=== PATIENT | female | born 1970 | race African-American/Black ===

== ENCOUNTER 2017-09-05 23:20 | Emergency (ER) | payer BC, OTHER ==
[~2017-09-05] VITALS: Ht 157.5 cm; Wt 74.8 kg
[2017-09-06] VITALS: BP 164/70
[2017-09-06] MEDS ORDERED: IV NORMAL SALINE 1000ML BAG 1,000 ML IV ONE
[2017-09-06] MEDS ORDERED: IV NORMAL SALINE 1000ML BAG 1,000 ML IV SCH
--- NOTE | 2017-09-06 | PHYS DOC ---
Past Medical History Past Medical History: No Pertinent History Past Surgical History: Cholecystectomy Alcohol Use: None Drug Use: None Adult General Chief Complaint Chief Complaint: OTHER COMPLAINTS HPI HPI Patient is a 46 year old female who presents ambulatory to the ED with the complaint that she feels jittery on the inside. She's never had this before. She does not feel anxious, she denies fever or shaking chills. Patient states that yesterday after her lunch break she began to feel nauseated, she felt nauseated during the afternoon, then when she got home from work she vomited. She had some vomiting during the afternoon and evening yesterday. This morning when she woke up she felt better and went ahead to work. She felt okay during the morning, then around lunchtime she began to feel nauseated and she felt nauseated all afternoon. She got home from work and continued to feel nauseated. She has not vomited today. She just "doesn't feel right" and feels jittery on the inside. She denies shortness of air. She has some pain right in the middle of her sternum that hurts when she moves or coughs. Patient works at [employer]. Patient has a diagnosis of hypertension. She takes hydrochlorothiazide and lisinopril daily. She also takes Flexeril 5 mg 3 times a day for "muscle pain", also takes Flonase nasal spray. She takes Zantac daily and also Effexor 75 mg twice a day. She denies missing any doses of Effexor or and she does not believe she vomited any of her doses. She denies new medications or discontinuing or running out of any medications. Review of Systems Review of Systems Constitutional: Denies fever or chills [] HENT: Denies nasal congestion or sore throat [] Respiratory: Denies cough or shortness of breath [] Cardiovascular: As in history of present illness, she has a point tender spot in her mid sternum that does not sound cardiac GI: As in history of present illness : She is about 3 days late with her menstrual period but has had BTL and does not think she is Musculoskeletal: Denies back pain or joint pain [] Integument: Denies rash or skin lesions [] Neurologic: Denies headache, focal weakness All other systems were reviewed and found to be within normal limits, except as documented in this note. Current Medications Current Medications Current Medications Medications (Trade) Dose Ordered Sig/Juan Carlos Start Time Stop Time Status Last Admin Dose Admin Sodium Chloride 1,000 ml @ 1,000 mls/hr 1X ONCE 09/06/17 00:00 09/06/17 00:59 Allergies Allergies Allergies Coded Allergies Type Severity Reaction Last Updated Verified nalbuphine Allergy Intermediate 12/25/14 No Physical Exam Physical Exam Constitutional: Well developed, well nourished, no acute distress, non-toxic appearance. Alert, ambulatory, no acute distress. She does not appear anxious. She does not have any tremulousness or shakiness. HENT: Normocephalic, atraumatic, bilateral external ears normal, nose normal. [ ] Eyes: conjunctiva normal, no discharge. [] Neck: Normal range of motion, no stridor. [] Cardiovascular:Heart rate regular rhythm, no murmur [] Lungs & Thorax: Bilateral breath sounds clear to auscultation [] Abdomen: Bowel sounds normal, soft, no tenderness, no masses, no pulsatile masses. [] Skin: Warm, dry, no erythema, no rash. [] Extremities: No tenderness, no cyanosis, no clubbing, ROM intact, no edema. [] Neurologic: Alert and oriented X 3, normal motor function, no focal deficits noted. [] Current Patient Data Vital Signs Vital Signs Date Time Temp Pulse Resp B/P (MAP) Pulse Ox O2 Delivery O2 Flow Rate FiO2 09/05/17 23:54 98.2 61 16 160/65 (96) 99 Room Air 98.2 Lab Values Laboratory Tests Test 09/05/17 23:59 09/06/17 00:06 White Blood Count 7.7 x10^3/uL (4.0-11.0) Red Blood Count 4.72 x10^6/uL (3.50-5.40) Hemoglobin 13.4 g/dL (12.0-15.5) Hematocrit 41.0 % (36.0-47.0) Mean Corpuscular Volume 87 fL (79-100) Mean Corpuscular Hemoglobin 28 pg (25-35) Mean Corpuscular Hemoglobin Concent 33 g/dL (31-37) Red Cell Distribution Width 14.1 % (11.5-14.5) Platelet Count 225 x10^3/uL (140-400) Neutrophils (%) (Auto) 51 % (31-73) Lymphocytes (%) (Auto) 37 % (24-48) Monocytes (%) (Auto) 9 % (0-9) Eosinophils (%) (Auto) 2 % (0-3) Basophils (%) (Auto) 1 % (0-3) Neutrophils # (Auto) 3.9 x10^3uL (1.8-7.7) Lymphocytes # (Auto) 2.9 x10^3/uL (1.0-4.8) Monocytes # (Auto) 0.7 x10^3/uL (0.0-1.1) Eosinophils # (Auto) 0.2 x10^3/uL (0.0-0.7) Basophils # (Auto) 0.0 x10^3/uL (0.0-0.2) Sodium Level 139 mmol/L (136-145) Potassium Level 3.8 mmol/L (3.5-5.1) Chloride Level 103 mmol/L (98-107) Carbon Dioxide Level 30 mmol/L (21-32) Anion Gap 6 (6-14) Blood Urea Nitrogen 11 mg/dL (7-20) Creatinine 1.0 mg/dL (0.6-1.0) Estimated GFR (Cockcroft-Gault) 71.6 BUN/Creatinine Ratio 11 (6-20) Glucose Level 87 mg/dL (70-99) Calcium Level 9.0 mg/dL (8.5-10.1) Total Bilirubin 0.4 mg/dL (0.2-1.0) Aspartate Amino Transferase (AST) 30 U/L (15-37) Alanine Aminotransferase (ALT) 27 U/L (14-59) Alkaline Phosphatase 72 U/L (46-116) Total Protein 7.9 g/dL (6.4-8.2) Albumin 4.0 g/dL (3.4-5.0) Albumin/Globulin Ratio 1.0 (1.0-1.7) POC Urine HCG, Qualitative Hcg negative (Negative) Laboratory Tests 09/05/17 23:59 Laboratory Tests 09/05/17 23:59 EKG EKG [] Radiology/Procedures Radiology/Procedures [] Course & Med Decision Making Course & Med Decision Making Pertinent Labs and Imaging studies reviewed. (See chart for details) 46-year-old female presents with feeling like she is jittery on the inside. Sounds like she may have had a viral gastroenteritis. She had nausea and several episodes of vomiting yesterday, today no vomiting but continued to be nauseated. Patient does take Effexor but she denies missing any doses, she denies running out, she denies vomiting her doses of this or any other medication. A shunt appears stable on presentation with pulse ox 100%, blood pressure mildly elevated 160/65. I discussed with the patient we will check some labs and give her a liter of IV fluids, she is agreeable to that plan. I am signing out the patient to Dr. Swartz at shift change. He will check her labs and see how she is feeling after a liter of IV fluids. I anticipate the patient being able to be discharged in stable condition if labs are within normal limits. 0038: Patient was seen and examined and updated on lab results and plan to discharge home. MDM: After reviewing the chart, CC/HPI/PMH, physical exam, [lab results], I do not believe the patient has emergent medical condition warranting further workup and /or admission at this time. I believe the patient is stable for discharge. Patient is comes Will be discharged home. Additional verbal discharge instructions were provided to the patient and that if symptoms get worse or any new symptoms arise that are worrisome to the patient she is to return to the emergency room immediately [] Dragon Disclaimer Dragon Disclaimer This electronic medical record was generated, in whole or in part, using a voice recognition dictation system. Departure Departure Impression: Primary Impression: Viral illness Disposition: HOME, SELF-CARE Condition: STABLE Referrals: UNKNOWN PCP NAME (PCP) Patient Instructions: Viral Infections Additional Instructions: Please follow-up with your family physician in the next one to 2 days and return if symptoms increase ARTEMIO PIPER MD Sep 06, 2017 00:00 JENI SWARTZ DO Sep 06, 2017 00:39
[2017-09-06 00:08] LABS: BASO % 1 % (0-3); EOS % 2 % (0-3); HEMOGLOBIN 13.4 g/dL (12.0-15.5); LYMPH # 2.9 x10^3/uL (1.0-4.8); LYMPH % 37 % (24-48); MEAN CORPUSCULAR HEMOGLOBIN 28 pg (25-35); MEAN CORPUSCULAR HGB CONC 33 g/dL (31-37); MEAN CORPUSCULAR VOLUME 87 fL (79-100); MONO % 9 % (0-9); NEUT % 51 % (31-73); PLATELET COUNT 225 x10^3/uL (140-400); RED BLOOD COUNT 4.72 x10^6/uL (3.50-5.40); RED CELL DISTRIBUTION WIDTH 14.1 % (11.5-14.5); WHITE BLOOD COUNT 7.7 x10^3/uL (4.0-11.0)
[2017-09-06 00:16] LABS: GFR 71.6; POTASSIUM 3.8 mmol/L (3.5-5.1)
[2017-09-06 00:21] LABS: TOTAL BILIRUBIN 0.4 mg/dL (0.2-1.0); TOTAL PROTEIN 7.9 g/dL (6.4-8.2)
== END 2017-09-06 00:45 | disposition home or self-care (01) ==
LOC: ER 23:20
DX: B34.9 Viral infection, unspecified (principal); I10 Essential (primary) hypertension; Z90.49 Acquired absence of other specified parts of digestive tract; Z88.8 Allergy status to other drugs, medicaments and biological substances
CPT/HCPCS: 36415; 80053; 81025; 85025; 96360; 99284; J7030